=== PATIENT | male | born 1955 | race Hispanic/Latino ===

== ENCOUNTER 2023-01-26 04:53 | Emergency (ER) | payer OTHER ==
[~2023-01-26] VITALS: Ht 167.6 cm; Wt 74.8 kg
[2023-01-26] MEDS ORDERED: MUPIROCIN22 GM TOP (05:40)
[2023-01-26] MEDS ORDERED: MUPIROCIN 2% OINT 22 GM TUBE TOP ONE (06:00)
== END 2023-01-26 05:47 | disposition home or self-care (01) ==
LOC: FSED 05:15
DX: R04.0 Epistaxis (principal); J34.89 Other specified disorders of nose and nasal sinuses; I10 Essential (primary) hypertension; E78.5 Hyperlipidemia, unspecified
CPT/HCPCS: 99282

== ENCOUNTER 2025-05-11 08:09 | Emergency (ER) | payer MEDICARE ==
[~2025-05-11] VITALS: Ht 162.6 cm; Wt 65.0 kg
[~2025-05-11 08:09] MED LIST: MUPIROCIN22 GM TOP
[2025-05-11] MEDS: ACETAMINOPHEN 325 MG TAB PO ONE (09:10)
[2025-05-11] MEDS: METOCLOPRAMIDE HCL 10 MG/2ML VIAL IV ONE (09:14)
[2025-05-11] MEDS: ONDANSETRON HCL INJ 2MG/ML 2ML 2 MG/ML VIAL IV STA (09:14)
[2025-05-11] MEDS ORDERED: IOPAMIDOL 370 MG/ML 100 ML INFUS..BTL INJ ONE (09:16)
[2025-05-11] MEDS ORDERED: PRAVASTATIN SOD40 MG (10:05)
[2025-05-11] MEDS ORDERED: NIFEDIPINE ER30 M1 PO (10:05)
[2025-05-11] MEDS ORDERED: LISINOPRIL10 MG PO (10:05)
[2025-05-11] MEDS ORDERED: TRICOR48 MG PO (10:05)
[2025-05-11 10:48] VITALS: PULSE 53; RESP 16; TEMP 97.6; O2SAT 95
[2025-05-11] MEDS ORDERED: CYCLOBENZAPRINE5 MG PO (10:56)
[2025-05-11] MEDS ORDERED: ONDANSETRON ODT4 MG PO (10:56)
== END 2025-05-11 11:05 | disposition home or self-care (01) ==
LOC: FSED 08:26
DX: R51.9 Headache, unspecified (principal); S06.0X0A Concussion without loss of consciousness, initial encounter; M62.838 Other muscle spasm; I10 Essential (primary) hypertension; E78.5 Hyperlipidemia, unspecified
CPT/HCPCS: 70450; 71260; 72125; 74177; 80048; 80076; 81003; 84484; 85025; 85610; 93005; 96374; 96375; 99284; J2405; J2765; Q9967